=== PATIENT | female | born 1975 | race Two or more races ===

== ENCOUNTER 2018-08-29 14:15 | Emergency (ER) | payer OTHER ==
[~2018-08-29] VITALS: Ht 157.5 cm; Wt 62.1 kg
[2018-08-29 15:56] VITALS: BP 149/97
== END 2018-08-29 16:37 | disposition home or self-care (01) ==
LOC: ER 14:24
DX: R20.2 Paresthesia of skin (principal); R51 Headache
CPT/HCPCS: 70450